=== PATIENT | male | born 1945 | race American Indian/Alaskan Native ===

== ENCOUNTER 2016-10-07 12:33 | Emergency (ER) | payer MEDICAID, MEDICARE ==
--- NOTE | 2016-10-07 12:55 | Emergency Department Report ---
HPI - General Time Seen by Provider: 10/07/16 12:33 - HPI HPI: The patient is a 71-year-old male who presents via EMS in cardiac arrest. Per the patient's family members the patient was found down, unresponsive, not breathing, 40-60 minutes prior to arrival to the patient's arrival to the emergency department. EMS states that they found the patient on scene unresponsive in cardiac arrest 30 minutes prior to arrival to the emergency department. EMS initiated CPR and attempted to administer ACLS medications per protocol. ED Past Medical Hx - Social History Smoking Status: Never Smoker Substance Use Type: None ED Review of Systems ROS: Stated complaint: CARDIAC ARREST Other details as noted in HPI Comment: Unobtainable due to pts medical conditions (unresponsive) Physical Exam - Physical Exam Physical Exam: Physical Exam: General: poorly-nourished, well-developed Head: Normocephalic, atraumatic Eyes: Pupils were fixed and dilated, unresponsive to light ENT: mucous membranes are pale and dry Neck: no appreciable carotid bruit or thrill Respiratory: Breath sounds equal with bagging Cardio: No distal pulses, extremities cold to touch Abdomen: soft abdomen, no obvious distention, no epigastric breath sounds with assisted ventilation Musc: No pitting edema Skin: No rash Neuro: Patient unresponsive to verbal or painful stimuli ED Medical Decision Making - Medical Decision Making The patient was seen and examined by myself. The patient is placed on a assistant administrator and continuous pulse ox. On initial evaluation, the patient was found to be unresponsive in cardiac arrest. Initial monitor rhythm reveals asystole. CPR is continued. As the patient has wide and fixed dilated pupils bilaterally, and has been in cardiac arrest for greater than 45 minutes, the patient has very poor chance of return of spontaneous circulation. The resuscitation team was queried regarding additional resuscitation efforts. No further ideas were volunteered. The resuscitation team agreed that best efforts to resuscitate the patient have been made. The resuscitation code is discontinued and the patient is pronounced . Family members are informed of the patient's passing. Critical care attestation.: If time is entered above; I have spent that time in minutes in the direct care of this critically ill patient, excluding procedure time. ED Disposition Clinical Impression: Cardiac arrest Disposition: Is pt being admited?: No Does the pt Need Aspirin: No Condition: Critical Referrals: PRIMARY CARE, [Primary Care Provider] - 3-5 Days Time of Disposition: 12:45
== END 2016-10-07 15:50 ==
LOC: ED 12:33
DX: I46.9 Cardiac arrest, cause unspecified (principal)
CPT/HCPCS: 92950